=== PATIENT | female | born 1970 | race Caucasian/White ===

== ENCOUNTER 2017-04-09 13:17 | Emergency (ER) | payer BC ==
[~2017-04-09] VITALS: Ht 167.6 cm; Wt 63.5 kg
[2017-04-09] MEDS ORDERED: NAPROSYN500 MG PO (13:36)
[2017-04-09] MEDS ORDERED: HYDROCODONE BIT1 T11 PO (14:43)
== END 2017-04-09 14:54 | disposition home or self-care (01) ==
LOC: ED 13:17
DX: S62.325A Displaced fracture of shaft of fourth metacarpal bone, left hand, initial encounter for closed fracture (principal); R03.0 Elevated blood-pressure reading, without diagnosis of hypertension; F17.200 Nicotine dependence, unspecified, uncomplicated; W18.30XA Fall on same level, unspecified, initial encounter; Y93.89 Activity, other specified; Y92.9 Unspecified place or not applicable; Y99.9 Unspecified external cause status